=== PATIENT | female | born 1950 | race Two or more races ===

== ENCOUNTER → 2018-07-25 | Outpatient (CLI) | payer OTHER | END | disposition home or self-care (01) | LOC: MAMO-SONO 10:00 | DX: Z12.31 Encounter for screening mammogram for malignant neoplasm of breast (principal); Z87.898 Personal history of other specified conditions; N64.4 Mastodynia; N63.10 Unspecified lump in the right breast, unspecified quadrant; N63.20 Unspecified lump in the left breast, unspecified quadrant; N83.202 Unspecified ovarian cyst, left side; N83.291 Other ovarian cyst, right side; N83.292 Other ovarian cyst, left side; M81.0 Age-related osteoporosis without current pathological fracture; N83.01 Follicular cyst of right ovary; N83.02 Follicular cyst of left ovary; N80.8 Other endometriosis; D25.9 Leiomyoma of uterus, unspecified; N60.11 Diffuse cystic mastopathy of right breast; R10.2 Pelvic and perineal pain ==